=== PATIENT | female | born 2000 | race African-American/Black ===

== ENCOUNTER → 2023-07-12 | Emergency (ER) | payer BC ==
[2023-07-12 14:27] LABS: Absolute Lymphocytes (CBC) 1.9 K/uL (0.7-4.9); Hematocrit 37.5 % (36.0-45.0); Lymphocytes % 39.2 % (15.3-44.8); MCV 81.9 fL (80-100); MPV 6.8 fL (7.6-11.3); Platelets 357 thou/uL (152-406); RBC Red Blood Cell Count 4.58 M/uL (3.86-4.86)
[2023-07-12 14:28] LABS: Specific Gravity 1.013 (1.005-1.030)
[2023-07-12 14:32] LABS: Specific Gravity 1.013 (1.005-1.030); Urine Bacteria None Seen /HPF (<20); Urine Bilirubin NEGATIVE (Negative); Urine Blood 3+ (OVER) (Negative); Urine Clarity Extremely Turbid (Clear); Urine Color Colorless (Yellow); Urine Glucose NEGATIVE (Negative); Urine Mucus Slight /HPF (None Seen); Urine Protein NEGATIVE (Negative); Urine RBC >50 /HPF (None Seen); Urine Urobilinogen Normal (Normal); Urine pH 6.5 (5.0-7.0)
--- NOTE | 2023-07-12 14:34 | RAD REPORT ---
EXAM DESCRIPTION: US - Transvaginal OB - 07/12/2023 2:01 pm CLINICAL HISTORY: VAGINAL BLEEDING COMPARISON: No comparisons TECHNIQUE: Sonographic grayscale and color flow images of a first-trimester were obtained through transvaginal and transabdominal approach. FINDINGS: A small intrauterine possible early gestational sac was visualized, with mean diameter 5.1 mm is identified, however no pole or cardiac pulsations are identified. This correlates to ges tational age of 5 weeks and 2 days. A large heterogeneous mass with with large hyperechoic components as well as fluid components and sep tations is seen interposed between the bladder and left adnexal region as best evaluated on the trans abdominal images, incompletely imaged, however the major component is measured at 7.3 x 6.7 x 6.5 cm in greatest dimensions. Origin of the mass is not discretely identified. Maternal ovaries were not visualized. No free pelvic fluid. IMPRESSION: 1. Small presumed early gestational sac within the upper uterine segment, would correlat e to gestational age 5 weeks and 2 days by size. Please correlate with beta HCG levels, and consider short-term sonographic follow-up to ensure viability. 2. Large heterogeneous pelvic mass as above, not entirely imaged. This is favored to be of ovarian or igin, possibly a complex cyst, cystic neoplasm, cystic lesion related to endometriosis, or a teratoma , among other considerations. If additional imaging is to be pursued during , and noncontras t pelvis MRI would provide improved sensitivity.
[2023-07-12 15:00] LABS: Potassium 3.4 mEq/L (3.5-5.1)
--- NOTE | 2023-07-12 15:41 | ER ---
Nurse's Notes [facility] Name: Jennifer Paredes Age: 22 yrs Sex: Female : 2000 Arrival Date: 07/12/2023 Time: 12:24 Bed 17 Private MD: Diagnosis: Threatened ;Other intra-abdominal and pelvic swelling, mass and lump Presentation: 07/12 12:35 Chief complaint: Patient states: Approximately 6 weeks . Started vaginal ll1 bleeding last night. Bleeding "like a period" but with clots in it. G1, P0. Coronavirus screen: Client denies travel out of the [place] in the last 14 days. At this time, the client does not indicate any symptoms associated with coronavirus-19. Ebola Screen: Patient denies travel to an Ebola-affected area in the 21 days before illness onset. Initial Sepsis Screen: Does the patient meet any 2 criteria? No. Patient's initial sepsis screen is negative. Does the patient have a suspected source of infection? No. Patient's initial sepsis screen is negative. Risk Assessment: Do you want to hurt yourself or someone else? Patient reports no desire to harm self or others. Onset of symptoms was July 11, 2023. 12:35 Method Of Arrival: Ambulatory ll1 12:35 Acuity: BEN 3 ll1 Triage Assessment: 12:38 General: Appears in no apparent distress. Behavior is calm, cooperative, appropriate ll1 for age. Pain: Denies pain. : Reports vaginal bleeding that is with clots, moderate flow. Historical: - Allergies: 12:45 Tree Nuts; ll1 - PMHx: 12:45 Asthma; ll1 - PSHx: 12:45 None; ll1 - Immunization history:: Adult Immunizations up to date. - Social history:: Smoking status: Patient denies any tobacco usage or history of. - Family history:: not pertinent. - Hospitalizations: : No recent hospitalization is reported. Screenin:54 [facility] ED Fall Risk Assessment (Adult) History of falling in the last 3 months, cm10 including since admission No falls in past 3 months (0 pts) Confusion or Disorientation No (0 pts) Intoxicated or Sedated No (0 pts) Impaired Gait No (0 pts) Mobility Assist Device Used No (0 pt) Altered Elimination No (0 pt) Score/Fall Risk Level 0 - 2 = Low Risk Oriented to surroundings, Maintained a safe environment, Hourly rounding (assess needs \\T\\ fall precautionary measures) done. Abuse screen: Denies threats or abuse. Denies injuries from another. Nutritional screening: No deficits noted. Tuberculosis screening: No symptoms or risk factors identified. Assessment: 14:21 Reassessment: No changes from previously documented assessment. Patient and/or family ll1 updated on plan of care and expected duration. Pain level reassessed. Patient is alert, oriented x 3, equal unlabored respirations, skin warm/dry/pink. 15:56 Reassessment: Patient appears in no apparent distress at this time. No changes from cm10 previously documented assessment. Patient and/or family updated on plan of care and expected duration. Pain level reassessed. Patient is alert, oriented x 3, equal unlabored respirations, skin warm/dry/pink. Vital Signs: 12:45 BP 158 / 99; Pulse 85; Resp 17; Temp 98.3; Pulse Ox 100% ; Weight 111.13 kg; Height 5 ll1 ft. 6 in. ; Pain 0/10; 15:54 BP 155 / 95; Pulse 87; Resp 16; Pulse Ox 100% on R/A; cm10 12:45 Body Mass Index 39.54 (111.13 kg, 167.64 cm) ll1 12:45 Pain Scale: Adult ll1 ED Course: 12:31 Patient arrived in ED. mg5 12:33 Bayron Lentz MD is Attending Physician. rn 12:37 Triage completed. ll1 13:30 Arm band placed on Patient placed in an exam room, on a stretcher. ll1 13:54 Missed attempt(s): 20 gauge in left antecubital area. 22 gauge in right antecubital ds4 area. Bleeding controlled, band aid applied, catheter tip intact. 14:03 US Transvaginal Ob In Process Unspecified. EDMS 14:18 Inserted saline lock: 22 gauge in right antecubital area, using aseptic technique. cm10 Blood collected. 14:21 Test, Urine Sent. ll1 14:21 Urinalysis w/ reflexes Sent. ll1 14:21 CBC with Diff Sent. ll1 14:21 Basic Metabolic Panel Sent. ll1 14:21 Abo/rh Typing Sent. ll1 15:55 Patient has correct armband on for positive identification. Provided Education on: cm10 Follow-up instructions. . 15:56 No provider procedures requiring assistance completed. IV discontinued, intact, cm10 bleeding controlled, No redness/swelling at site. Pressure dressing applied. Administered Medications: No medications were administered Medication: 15:54 VIS not applicable for this client. cm10 Outcome: 15:41 Discharge ordered by . rn 15:55 Discharged to home ambulatory, with significant other, cm10 15:55 Condition: good 15:55 Discharge instructions given to patient, Instructed on discharge instructions, follow up and referral plans. Demonstrated understanding of instructions, follow-up care, 15:57 Patient left the ED. cm10 Signatures: Dispatcher [employer] EDMS Bayron Lentz MD MD rn Swanson, Donovan ds4 Julian England RN RN ll1 Toya Boland RN RN cm10 Nicolette Resendiz mg5 Corrections: (The following items were deleted from the chart) 12:47 12:38 : Reports vaginal bleeding that is ll1 ll1 12:50 12:35 Chief complaint: Patient states: Approximately 6 weeks . Started vaginal ll1 bleeding last night. Bleeding "like a period" but with clots in it. ll1 13:30 12:33 Arm band placed on Patient placed in an exam room, on a stretcher, ll1 ll1
--- NOTE | 2023-07-12 15:41 | EDPHYS ---
Physician Documentation [facility] Name: Jennifer Paredes Age: 22 yrs Sex: Female : 2000 Arrival Date: 07/12/2023 Time: 12:24 Bed 17 Private MD: ED Physician Bayron Lentz HPI: 07/12 13:29 This 22 yrs old Black Female presents to ER via Ambulatory with complaints of Preg rn 6wks, Vaginal Bleeding. 13:29 The patient presents with vaginal bleeding that is moderate. Onset: The rn symptoms/episode began/occurred this morning. Modifying factors: The symptoms are alleviated by nothing, the symptoms are aggravated by nothing. Severity of symptoms: At their worst the symptoms were mild, in the emergency department the symptoms are unchanged. The patient has not experienced similar symptoms in the past. Patient is G1, P0 at approximately 5 to 6 weeks and her who presents with vaginal bleeding. Also has mild lower abdominal cramping. No trauma. Was had an ultrasound place and directed to come to ER or see her OB doctor.. Historical: - Allergies: 12:45 Tree Nuts; ll1 - PMHx: 12:45 Asthma; ll1 - PSHx: 12:45 None; ll1 - Immunization history:: Adult Immunizations up to date. - Social history:: Smoking status: Patient denies any tobacco usage or history of. - Family history:: not pertinent. - Hospitalizations: : No recent hospitalization is reported. ROS: 13:29 Constitutional: Negative for fever, chills, and weight loss, Cardiovascular: Negative rn for chest pain, palpitations, and edema, Respiratory: Negative for shortness of breath, cough, wheezing, and pleuritic chest pain, Abdomen/GI: Positive for abdominal cramping : Positive for vaginal bleeding Exam: 13:29 Constitutional: This is a well developed, well nourished patient who is awake, alert, rn and in no acute distress. Cardiovascular: Regular rate and rhythm. No pulse deficits. Respiratory: No increased work of breathing, no retractions or nasal flaring. Abdomen/GI: Soft, nontender Vital Signs: 12:45 BP 158 / 99; Pulse 85; Resp 17; Temp 98.3; Pulse Ox 100% ; Weight 111.13 kg; Height 5 ll1 ft. 6 in. ; Pain 0/10; 15:54 BP 155 / 95; Pulse 87; Resp 16; Pulse Ox 100% on R/A; cm10 12:45 Body Mass Index 39.54 (111.13 kg, 167.64 cm) ll1 12:45 Pain Scale: Adult ll1 MDM: 12:33 Patient medically screened. rn 15:40 Differential diagnosis: ectopic , Data reviewed: vital signs, nurses notes, e learning specialist test result(s), radiologic studies, ultrasound, and as a result, I will discharge patient. Counseling: I had a detailed discussion with the patient and/or guardian regarding the historical points, exam findings, and any diagnostic results supporting the discharge/admit diagnosis, lab results, radiology results, the need for outpatient follow up, to return to the emergency department if symptoms worsen or persist or if there are any questions or concerns that arise at home. Special discussion: I discussed with the patient/guardian in detail that at this point there is no indication for admission to the hospital. It is understood, however, that if the symptoms persist or worsen the patient needs to return immediately for re-evaluation. Based on the history and exam findings, there is no indication for further emergent testing or inpatient evaluation. I discussed with the patient/guardian the need to see the OB Gyne specialist for further evaluation of the symptoms. ED course: Ultrasound shows single IUP, but also has found large pelvic mass. Patient states history of ovarian cysts but has not seen quilt maker for this specific problem. Had long conversation with patient and significant other and her need for gynecologic evaluation and referral. Will return in 2 days for repeat beta quant since she does not have an OB doctor at this time.. 07/12 12:39 Order name: Abo/rh Typing; Complete Time: 15:03 rn 07/12 12:39 Order name: Basic Metabolic Panel; Complete Time: 15:03 rn 07/12 12:39 Order name: CBC with Diff; Complete Time: 14:39 rn 07/12 12:39 Order name: Test, Urine; Complete Time: 14:39 rn 07/12 12:39 Order name: Quantitative Hcg; Complete Time: 15:03 rn 07/12 12:39 Order name: Urinalysis w/ reflexes; Complete Time: 14:39 rn 07/12 12:39 Order name: US Transvaginal Ob; Complete Time: 14:39 rn 07/12 12:39 Order name: IV Saline Lock; Complete Time: 14:18 rn 07/12 12:39 Order name: Labs collected and sent; Complete Time: 14:18 rn 07/12 12:39 Order name: NPO; Complete Time: 14:12 rn Administered Medications: No medications were administered Disposition Summary: 07/12/23 15:41 Discharge Ordered Notes: Location: Home rn Problem: new rn Symptoms: are unchanged rn Condition: Stable rn Diagnosis - Threatened rn - Other intra-abdominal and pelvic swelling, mass and lump rn Followup: rn - With: Emergency Department - When: 48 Hours - Reason: Recheck today's complaints, Re-evaluation by your physician Discharge Instructions: - Discharge Summary Sheet rn - Threatened Miscarriage rn - Vaginal Bleeding During , First Trimester rn - Pelvic Mass, Female rn Forms: - Medication Reconciliation Form rn - Thank You Letter rn - Antibiotic internal communications manager - Prescription Opioid Use rn - Patient Portal Instructions rn - Leadership Thank You Letter rn Signatures: Dispatcher [employer] Bayron Curran MD MD rn Lewis, Lynsay, RN RN 1
[2023-07-12 17:35] VITALS: BP 155/95; TEMP 98.3; O2SAT 100
== END ==
LOC: ER 12:24
DX: O20.0 Threatened abortion (principal); Z91.018 Allergy to other foods
CPT/HCPCS: 36415; 76817; 80048; 81001; 81025; 84702; 85025; 86900; 86901

== ENCOUNTER → 2023-07-14 | Emergency (ER) | payer BC ==
--- NOTE | 2023-07-14 14:01 | EDPHYS ---
Physician Documentation [facility] Name: Jennifer Paredes Age: 22 yrs Sex: Female : 2000 Arrival Date: 07/14/2023 Time: 11:51 Bed 11 Private MD: ED Physician Domenic Jackson HPI: 07/14 13:55 This 22 yrs old Black Female presents to ER via Ambulatory with complaints of Recheck sp3 HCG levels. 13:55 22-year-old female G1, P0 who was seen 2 days ago for vaginal bleeding returns to the sp3 ED for reevaluation of beta hCG serum levels. 2 days ago level was 1400 and ultrasound demonstrated 2 findings. The first was IUP at 6 weeks and secondarily the left ovarian mass which was either a complex cyst versus teratoma versus malignancy. Patient today states that she continues to have vaginal bleeding does not have any pain. No other symptoms or changes reported. Patient has an appointment for follow-up with gynecology on July 24.. 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 - Social history:: Smoking status: Patient denies any tobacco usage or history of. ROS: 13:58 Constitutional: Negative for fever, chills, and weight loss, Eyes: Negative for injury, sp3 pain, redness, and discharge, ENT: Negative for injury, pain, and discharge, Neck: Negative for injury, pain, and swelling, Cardiovascular: Negative for chest pain, palpitations, and edema, Respiratory: Negative for shortness of breath, cough, wheezing, and pleuritic chest pain, Abdomen/GI: Negative for abdominal pain, nausea, vomiting, diarrhea, and constipation, Back: Negative for injury and pain, MS/Extremity: Negative for injury and deformity, Psych: Negative for depression, anxiety, suicide ideation, homicidal ideation, and hallucinations, Allergy/Immunology: Negative for hives, rash, and allergies, 13:58 All other systems are negative, Exam: 13:59 Constitutional: This is a well developed, well nourished patient who is awake, alert, sp3 and in no acute distress. Head/Face: Normocephalic, atraumatic. Cardiovascular: Regular rate and rhythm with a normal S1 and S2. No gallops, murmurs, or rubs. Normal PMI, no JVD. No pulse deficits. Respiratory: Lungs have equal breath sounds bilaterally, clear to auscultation and percussion. No rales, rhonchi or wheezes noted. No increased work of breathing, no retractions or nasal flaring. Abdomen/GI: Soft, non-tender, with normal bowel sounds. No distension or tympany. No guarding or rebound. No evidence of tenderness throughout. Neuro: Awake and alert, GCS 15, oriented to person, place, time, and situation. Cranial nerves II-XII grossly intact. Motor strength 5/5 in all extremities. Sensory grossly intact. Cerebellar exam normal. Normal gait. Psych: Awake, alert, with orientation to person, place and time. Behavior, mood, and affect are within normal limits. Vital Signs: 12:17 BP 148 / 91; Pulse 108; Resp 18 S; Temp 98.8(O); Pulse Ox 96% on R/A; aa5 MDM: 12:20 Patient medically screened. sp3 13:59 Data reviewed: vital signs, nurses notes, lab test result(s). ED course: 22-year-old sp3 female here for repeat hCG serum at 48 hours. Repeat level is at 1900 which is less than the doubling amount that we would expect. Patient is still having vaginal bleeding that is painless. At this point we will advise her that she likely has an impending miscarriage and she will follow-up with her field insurance sales manager on July 24. She will also need to be reevaluated for her ovarian mass. She has been instructed to return if bleeding gets significantly worse, she has significant pain, near syncope, syncope, weakness, or any other concerning findings. Otherwise she can follow-up with her field insurance sales manager. Heart rate initially was 108 but it is in the upper 80s on my exam and on discharge.. 07/14 12:25 Order name: Quantitative Hcg; Complete Time: 13:40 sp3 Administered Medications: No medications were administered Disposition Summary: 07/14/23 14:00 Discharge Ordered Notes: Location: Home sp3 Condition: Stable sp3 Diagnosis - Threatened , vaginal bleeding sp3 Followup: sp3 - With: Private Physician - When: Upon discharge from the Emergency Department - Reason: Continuance of care Discharge Instructions: - Discharge Summary Sheet sp3 - Threatened Miscarriage sp3 Forms: - Medication Reconciliation Form sp3 - Thank You Letter sp3 - Antibiotic Education sp3 - Prescription Opioid Use sp3 - Patient Portal Instructions sp3 - Leadership Thank You Letter sp3 Signatures: Dispatcher [employer] Christianne Moss, RN RN aa5 Domenic Jackson MD MD sp3
--- NOTE | 2023-07-14 14:01 | ER ---
Nurse's Notes [facility] Name: Jennifer Paredes Age: 22 yrs Sex: Female : 2000 Arrival Date: 07/14/2023 Time: 11:51 Bed 11 Private MD: Diagnosis: Threatened , vaginal bleeding Presentation: 07/14 12:17 Chief complaint: Patient states: need for repeat HCG level, was seen here 2 days ago. aa5 Coronavirus screen: At this time, the client does not indicate any symptoms associated with coronavirus-19. Ebola Screen: Patient denies travel to an Ebola-affected area in the 21 days before illness onset. Initial Sepsis Screen: Does the patient meet any 2 criteria? No. Patient's initial sepsis screen is negative. Does the patient have a suspected source of infection? No. Patient's initial sepsis screen is negative. Risk Assessment: Do you want to hurt yourself or someone else? Patient reports no desire to harm self or others. Onset of symptoms was July 14, 2023. 12:17 Method Of Arrival: Ambulatory aa5 12:17 Acuity: BEN 4 aa5 Triage Assessment: 14:09 General: Appears in no apparent distress. Pain: Denies pain. Neuro: Level of ap3 Consciousness is awake, alert, obeys commands, Oriented to person, place, time, situation, Appropriate for age. 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 - Social history:: Smoking status: Patient denies any tobacco usage or history of. Screenin:55 [facility] ED Fall Risk Assessment (Adult) Score/Fall Risk Level 0 - 2 = Low Risk hb Oriented to surroundings, Maintained a safe environment, Educated pt \T\ family on fall prevention, incl call for assistance when getting out of bed. Abuse screen: Denies threats or abuse. Denies injuries from another. Nutritional screening: No deficits noted. Tuberculosis screening: No symptoms or risk factors identified. Assessment: 13:55 General: Appears in no apparent distress. Behavior is calm, cooperative. Neuro: Level hb of Consciousness is awake, alert, obeys commands, GCS 15. Cardiovascular: Patient's skin is warm and dry. Respiratory: Respiratory effort is even, unlabored, Respiratory pattern is regular, symmetrical. Vital Signs: 12:17 BP 148 / 91; Pulse 108; Resp 18 S; Temp 98.8(O); Pulse Ox 96% on R/A; aa5 ED Course: 11:54 Patient arrived in ED. mr 11:58 Domenic Jackson MD is Attending Physician. sp3 12:18 Triage completed. aa5 12:18 Arm band placed on. aa5 12:52 Initial lab(s) drawn, by me, sent to lab. aa5 13:55 Patient has correct armband on for positive identification. Provided Education on: . hb 13:55 No provider procedures requiring assistance completed. Patient did not have IV access hb during this emergency room visit. Administered Medications: No medications were administered Medication: 13:55 VIS not applicable for this client. hb Outcome: 14:00 Discharge ordered by . sp3 14:09 Discharged to home ambulatory, with family, ap3 14:09 Condition: good 14:09 Discharge instructions given to patient, Instructed on discharge instructions, follow up and referral plans. Demonstrated understanding of instructions, follow-up care, 14:09 Patient left the ED. ap3 Signatures: Ann Marie Giang, Reg Reg mr SearsChristianne, RN RN aa5 Yara Bowling, DELMA RN Nancy Ruiz RN RN ap3 Domenic Jackson MD MD sp3
[2023-07-14 17:36] VITALS: BP 148/91; TEMP 98.8; O2SAT 96
== END ==
LOC: ER 11:51
DX: O20.0 Threatened abortion (principal); Z91.018 Allergy to other foods
CPT/HCPCS: 36415; 84702; 99283

== ENCOUNTER 2024-09-16 22:08 | Emergency (ER) | payer BC, SELFPAY ==
--- OUTSIDE RECORDS SUMMARY | 2024-09-16 22:13 | XMS REPORT | Continuity of Care Document ---
Author Name Unknown Address [address] [facility] [address] [place] [address] [facility] Address [address] [facility] 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 2023-07 00:00: 00 [facility] von Willebrand disorder Von Willebrand Disorder Problem Active 2023-07 00:00: 00 [facility] Cyst of right ovary Cyst of Right Ovary Problem Active 2023-07 00:00: 00 [facility] Polycystic ovary syndrome Polycystic Ovary Syndrome Problem Active 2023-07 00:00: 00 [facility] Pain in pelvis Pain in Pelvis Problem Active 2023-07 00:00: 00 [facility] Menorrhagi a Menorrhagi a Problem Active 2023-07 00:00: 00 [facility] Abnormal uterine bleeding Abnormal Uterine Bleeding Problem Active 2023-07 00:00: 00 [facility] Allergies, Adverse Reactions, Alerts Allergy Name Allergy Type Status Severity Reaction(s) Onset Date Inactive Date Treating Clinician Comments Source walnut FA Active SV SHORTNESS OF BREATHE 2023-07 00:00: 00 [facility] cashew nut FA Active SV SHORTNESS OF BREATHE 2023-07 00:00: 00 [facility] peanut FA Active SV SHORTNESS OF BREATH 2023-07 00:00: 00 [facility] Medications Ordered Medication Name Filled Medication Name Start Date Stop Date Current Medication? Ordering Clinician Indication Dosage Frequency Signature (SIG) Comments Components Source azelastine 137 mcg (0.1 %) nasal spray USE 1 SPRAY(S) IN EACH NOSTRIL ONCE DAILY azelastine 137 mcg (0.1 %) nasal spray USE 1 SPRAY(S) IN EACH NOSTRIL ONCE DAILY No azelastine 137 mcg (0.1 %) nasal spray USE 1 SPRAY(S) IN EACH NOSTRIL ONCE DAILY [facility] hydrocodone 5 mg-acetamin ophen 325 mg tablet hydrocodone 5 mg-acetamin ophen 325 mg tablet No hydrocodon e 5 mg-acetami nophen 325 mg tablet [facility] ibuprofen 600 mg tablet ibuprofen 600 mg tablet No ibuprofen 600 mg tablet [facility] Vital Signs Vital Name Observation Time Observation Value Comments S ource BP Systolic 2024-06-20 00:00:00 128 mm[Hg] [facility] Body Weight 2024-06-20 00:00:00 262 [lb_av] [facility] BP Diastolic 2024-06-20 00:00:00 86 mm[Hg] [facility] BMI (Body Mass Index) 2024-06-20 00:00:00 43.6 kg/m2 [facility] Height 2024-06-20 00:00:00 65 [in_i] [facility] Height 2024-06-04 00:00:00 65 [in_i] [facility] Body Weight 2024-05-27 00:00:00 260 [lb_av] [facility] BP Systolic 2024-05-27 00:00:00 132 mm[Hg] [facility] Height 2024-05-27 00:00:00 65 [in_i] [facility] BMI (Body Mass Index) 2024-05-27 00:00:00 43.3 kg/m2 [facility] BP Diastolic 2024-05-27 00:00:00 82 mm[Hg] [facility] Body Weight 2024-05-13 00:00:00 260 [lb_av] [facility] Height 2024-05-13 00:00:00 65 [in_i] [facility] BP Systolic 2024-05-13 00:00:00 118 mm[Hg] [facility] BMI (Body Mass Index) 2024-05-13 00:00:00 43.3 kg/m2 [facility] BP Diastolic 2024-05-13 00:00:00 76 mm[Hg] [facility] Encounters Start Date/Time End Date/Time Encounter Type Admission Type Attending [facility] Care Facility Care Department Encounter ID Source 2024-06-20 00:00:00 2024-06-20 00:00:00 Rj Madrid MD: [address] [facility] [address], [place] [address] , Ph. [facility] _[facility] 200 Office [id number] [facility] 2024-06-10 05:45:00 2024-06-10 05:45:00 Outpatient Rj Grove [facility] DAYS [id number] [facility] 2024-06-04 00:00:00 2024-06-04 00:00:00 Rj Madrid MD: [address] [facility] [address], [place] [address] , Ph. [facility] _[facility] 200 Office [id number] [facility] 2024-05-27 00:00:00 2024-05-27 00:00:00 Rj Madrid MD: [address] [facility] [address], [place] [address] , Ph. [facility] _[facility] 200 Office [id number] [facility] 2024-05-13 00:00:00 2024-05-13 00:00:00 Rj Madrid MD: [address] [facility] [address], [place] [address] , Ph. [facility] 200 Office [id number] [facility] 2022-06-23 15:39:00 2022-06-23 18:46:00 Emergency E AD[place] [address] [facility] Results Test Description Test Time Test Comments Results Result Co mments Source Surgical pathology [id number] 14:22:[facility] [id number] 14:34:00* Test Item Value Reference Range Interpretation Comme nts SODIUM (test code = NA) 137 mmol/L 136-145 N POTASSIUM (test code = K) 3.9 mmol/L 3.5-5.1 N CHLORIDE (test code = CL) 104.0 mmol/L 98-107 N CARBON DIOXIDE (test code = CO2) 22.0 mmol/L 21-32 N ANION GAP (test code = GAP) 14.9 mmol/L 10-20 N GLUCOSE (test code = GLU) 83 mg/dL 74-106 N BLOOD UREA NITROGEN (test code = BUN) 8 mg/dL 7-18 N GLOMERULAR FILTRATION RATE (test code = GFR) > 60 mL/min >=60 The Glomerular Filtration Rate is a calculated parameterbased on serum Creatinine, patient age and sex. GFR valuesless than 60 mL/min/1.73 square meters are indicative ofChronic Kidney Disease. Values less than 15 mL/min/1.73square meters indicate Kidney failure. The calculation forGFR is based on the CKD-EPI (2020) calculation. This formulais race indifferent and is the recommended formula for GFRby the National Kidney Foundation for Adults.The GFR will not calculate if the sex is unknown or if thepatient's age is <18 years. CREATININE (test code = CREAT) 0.70 mg/dL 0.55-1.02 N Note change in reference range due to change in reagent. BUN/CREATININE RATIO (test code = BUN/CREA) 11.3 10-20 N TOTAL PROTEIN (test code = PROT) 7.6 gram/dL 6.4-8.2 N ALBUMIN (test code = ALB) 3.8 g/dL 3.4-5.0 N GLOBULIN (test code = GLOB) 3.8 gram/dL 2.7-4.2 N ALBUMIN/GLOBULIN RATIO (test code = A/G) 1.0 0.75-1.50 N CALCIUM (test code = CA) 9.1 mg/dL 8.5-10.1 N BILIRUBIN TOTAL (test code = BILT) 0.50 mg/dL 0.0-1.0 N SGOT/AST (test code = AST) 21 IUnit/L 15-37 N SGPT/ALT (test code = ALT) 23 IUnit/L 12-78 N ALKALINE PHOSPHATASE TOTAL (test code = ALKP) 61 IUnit/L 45-117 N Note change in reference range due to change in reagent. PROTHROMBIN [id number] 14:32:00* Test Item Value Reference Range Interpretation Comme nts PROTHROMBIN TIME PATIENT (test code = PTP) 11.1 seconds 10.0-14.0 N INTERNATIONAL NORMAL RATIO (test code = INR) 1.1 0.8-1.2 N The therapeutic range for oral anticoagulant therapy formost indications is an international normalized ratio (INR)of between 2.0 and 3.0. The recommended therapeutic INRrange for various clinical situations is listed below: Clinical Situation INR range Pulmonary embolism treatment (2.0-3.0)Venous thrombosis treatmentVenous thrombosis prophylaxis (high risk surgery)Prevention of systemic embolism from: Acute myocardial infarction Valvular heart disease Atrial fibrillation Mechanical prosthetic heart valves (2.5-3.5) IS PATIENT ON ANTICOAGULANTS? NTHROMBOPLASTIN TIME [id number] 14:32:00* Test Item Value Reference Range Interpretation Comme nts THROMBOPLASTIN TIME PARTIAL (test code = PTT) 30.4 seconds 26.6-37.3 N IS PATIENT ON ANTICOAGULANTS? [facility] [id number] 14:28:00* Test Item Value Reference Range Interpretation Comme nts HCG SERUM QUAL (test code = HCGQL) NEGATIVE NEGATIVE This HCGQL test is NOT applicable for MALE patients.Check with nurse about probable order error.If Tumor Marker Test needed, nurse should order test "HCGTU"(Test #[id number]) CBC W/AUTO [id number] 14:20:00* Test Item Value Reference Range Interpretation Comme nts WHITE BLOOD CELL (test code = WBC) 7.6 K/mm3 4.5-12.5 N RED BLOOD CELL (test code = RBC) 4.47 mill/mm3 3.7-5.2 N HEMOGLOBIN (test code = HGB) 11.6 gram/dL 11.5-15.5 N HEMATOCRIT (test code = HCT) 37.0 % 36.0-46.0 N MEAN CELL VOLUME (test code = MCV) 82.8 fL 80-98 N MEAN CELL HGB (test code = MCH) 26.0 picogram 27.0-33.0 L MEAN CELL HGB CONCETRATION (test code = MCHC) 31.4 gram/dL 33.0-36.0 L RED CELL DISTRIBUTION WIDTH (test code = RDW) 13.5 % 11.6-16.2 N RED CELL DISTRIBUTION WIDTH SD (test code = RDW-SD) 41.1 fL 37.0-51.0 N PLATELET COUNT (test code = PLT) 438 K/mm3 150-450 N MEAN PLATELET VOLUME (test c ode = MPV) 8.9 fL 6.7-11.0 N NEUTROPHIL % (test code = NT%) 59.0 % 39.0-69.0 N IMMATURE GRANULOCYTE % (test code = IG%) 0.1 % 0.0-5.0 N LYMPHOCYTE % (test code = LY%) 33.8 % 25.0-55.0 N MONOCYTE % (test code = MO%) 4.3 % 0.0-10.0 N EOSINOPHIL % (test code = EO%) 2.5 % 0.0-5.0 N BASOPHIL % (test code = BA%) 0.3 % 0.0-1.0 N NUCLEATED RBC % (test code = NRBC%) 0.0 % 0-0 N NEUTROPHIL # (test code = NT#) 4.50 K/mm3 1.8-7.7 N IMMATURE GRANULOCYTE # (test code = IG#) 0.01 x10 3/uL 0-0.03 N LYMPHOCYTE # (test code = LY#) 2.58 K/mm3 1.0-5.0 N MONOCYTE # (test code = MO#) 0.33 K/mm3 0-0.8 N EOSINOPHIL # (test code = EO#) 0.19 K/mm3 0.0-0.5 N BASOPHIL # (test code = BA#) 0.02 K/mm3 0.0-0.2 N NUCLEATED RBC # (test code = NRBC#) 0.00 K/mm3 0.0-0.1 N Prothrombin time (PT)2024-06-04 13:45:00* Test Item Value Reference Range Interpretation Comme [facility] prothrombin time patient (te st code = prothrombin time patient) 11.1 seconds 10.0-14.0 international normal ratio ( test code = international normal ratio) 1.1 0.8-1.2 performing lab: (test code = performing lab:) [facility] [id number] 13:45:00* Test Item Value Reference Range Interpretation Comme [facility] thromboplastin time partial (test code = thromboplastin time partial) 30.4 seconds 26.6-37.3 performing lab: (test code = performing lab:) [facility] or [id number] 13:45:00* Test Item Value Reference Range Interpretation Comme nts sodium (test code = sodium) 137 mmol/L 136-145 potassium (test code = potassium) 3.9 mmol/L 3.5-5.1 chloride (test code = chloride) 104.0 mmol/L 98-107 carbon dioxide (test code = carbon dioxide) 22.0 mmol/L 21-32 anion gap (test code = anion gap) 14.9 mmol/L 10-20 glucose (test code = glucose) 83 mg/dL 74-106 blood urea nitrogen (test co de = blood urea nitrogen) 8 mg/dL 7-18 glomerular filtration rate ( test code = glomerular filtration rate) > 60 >=60 creatinine (test code = creatinine) 0.70 mg/dL 0.55-1.02 BUN/creatinine ratio (test c ode = BUN/creatinine ratio) 11.3 10-20 total protein (test code = t otal protein) 7.6 gram/dL 6.4-8.2 albumin (test code = albumin) 3.8 g/dL 3.4-5.0 globulin (test code = globulin) 3.8 gram/dL 2.7-4.2 albumin/globulin ratio (test code = albumin/globulin ratio) 1.0 0.75-1.50 calcium (test code = calcium) 9.1 mg/dL 8.5-10.1 bilirubin total (test code = bilirubin total) 0.50 mg/dL 0.0-1.0 SGOT/AST (test code = SGOT/AST) 21 iunit/L 15-37 SGPT/ALT (test code = SGPT/ALT) 23 iunit/L 12-78 alkaline phosphatase total ( test code = alkaline phosphatase total) 61 iunit/L 45-117 performing lab: (test code = performing lab:) [facility] ( test) [Presence] in Serum or [id number] 13:44:00* Test Item Value Reference Range Interpretation Comme nts HCG serum qual (test code = HCG serum qual) NEGATIVE negative performing lab: (test code = performing lab:) [facility] W Auto Differential panel - [id number] 13:44:00* Test Item Value Reference Range Interpretation Comme nts white blood cell (test code = white blood cell) 7.6 K/mm3 4.5-12.5 red blood cell (test code = red blood cell) 4.47 mill/mm3 3.7-5.2 hemoglobin (test code = hemoglobin) 11.6 gram/dL 11.5-15.5 hematocrit (test code = hematocrit) 37.0 % 36.0-46.0 mean cell volume (test code = mean cell volume) 82.8 fL 80-98 mean cell HGB (test code = m joni cell HGB) 26.0 picogram 27.0-33.0 L mean cell HGB concetration (test code = mean cell HGB concetration) 31.4 gram/dL 33.0-36.0 L red cell distribution width (test code = red cell distribution width) 13.5 % 11.6-16.2 red cell distribution width SD (test code = red cell distribution width SD) 41.1 fL 37.0-51.0 platelet count (test code = platelet count) 438 K/mm3 150-450 mean platelet volume (test c ode = mean platelet volume) 8.9 fL 6.7-11.0 neutrophil % (test code = neutrophil %) 59.0 % 39.0-69.0 immature granulocyte % (test code = immature granulocyte %) 0.1 % 0.0-5.0 lymphocyte % (test code = lymphocyte %) 33.8 % 25.0-55.0 monocyte % (test code = monocyte %) 4.3 % 0.0-10.0 eosinophil % (test code = eosinophil %) 2.5 % 0.0-5.0 basophil % (test code = basophil %) 0.3 % 0.0-1.0 nucleated RBC % (test code = nucleated RBC %) 0.0 % 0-0 neutrophil # (test code = neutrophil #) 4.50 K/mm3 1.8-7.7 immature granulocyte # (test code = immature granulocyte #) 0.01 x10 3/uL 0-0.03 lymphocyte # (test code = lymphocyte #) 2.58 K/mm3 1.0-5.0 monocyte # (test code = monocyte #) 0.33 K/mm3 0-0.8 eosinophil # (test code = eosinophil #) 0.19 K/mm3 0.0-0.5 basophil # (test code = basophil #) 0.02 K/mm3 0.0-0.2 nucleated RBC # (test code = nucleated RBC #) 0.00 K/mm3 0.0-0.1 performing lab: (test code = performing lab:) [facility]Mass/volume] in Serum or [id number] 00:00:00* Test Item Value Reference Range Interpretation Comme nts androstenedione lcms (test c ode = androstenedione lcms) 82 NG/dL 41-262 [facility]ucose tolerance and insulin sensitivity 2 hour panel - Serum or [id number] 00:00:00* Test Item Value Reference Range Interpretation Comme nts glucose, fasting (test code = glucose, fasting) 76 mg/dL 70-99 glucose, 2 hour (test code = glucose, 2 hour) 90 mg/dL 70-139 [facility] [id number] [Mass/volume] in Serum or [id number] 00:00:00* Test Item Value Reference Range Interpretation Comme nts 17-oh progesterone lcms (romaine t code = 17-oh progesterone lcms) 27 NG/dL [facility]orrh[facility] coagulation panel - Platelet poor [id number] 00:00:00* Test Item Value Reference Range Interpretation Comme nts factor VIII activity (test c ode = factor VIII activity) 88 % 56-140 von willebrand factor (vwf) Ag (test code = von willebrand factor (vwf) Ag) 71 % 50-200 vwf activity (test code = vw f activity) 36 % 50-200 L factor XI activity (test cod e = factor XI activity) 108 % 60-150 APTT (test code = APTT) 28.3 sec 22.9-30.2 PT (test code = PT) 10.3 sec 9.1-12.0 [facility] MedicalInsulin [Units/volume] in Serum or [id number] 00:00:00* Test Item Value Reference Range Interpretation Comme nts insulin (test code = insulin) 19.0 uIU/mL 2.6-24.9 [facility] [Mass/volume] in Serum or [id number] 00:00:00* Test Item Value Reference Range Interpretation Comme nts prolactin (test code = prolactin) 17.1 NG/mL 4.8-23.3 [facility] MedicalFree T4 and TSH panel - Serum or [id number] 00:00:00* Test Item Value Reference Range Interpretation Comme nts TSH (test code = TSH) 2.600 uIU/mL 0.500-4.530 free T4 (test code = free T4) 1.13 NG/dL 0.80-1.73 [facility] 2000 [facility] - Serum or [id number] 00:00:00* Test Item Value Reference Range Interpretation Comme nts sodium (test code = sodium) 139 mmol/L 136-145 potassium (test code = potassium) 4.5 mmol/L 3.5-5.5 chloride (test code = chloride) 103 mmol/L 98-107 CO2 (test code = CO2) 24 mmol/ L 23-31 glucose (test code = glucose) 72 mg/dL 70-99 BUN (test code = BUN) 12 mg/dL 6-20 creatinine (test code = creatinine) 0.7 mg/dL 0.5-0.9 calcium (test code = calcium) 9.5 mg/dL 8.6-10.4 total protein (test code = total protein) 7.3 g/dL 6.0-8.3 albumin (test code = albumin) 4.5 g/dL 3.5-5.2 total bilirubin (test code = total bilirubin) 0.2 mg/dL 0.0-1.2 alkaline phosphatase (test code = alkaline phosphatase) 64 U/L 44-147 AST (SGOT) (test code = AST (SGOT)) 27 U/L 0-32 ALT (SGPT) (test code = ALT (SGPT)) 27 U/L 0-33 globulin (test code = globulin) 2.8 g/dL 1.7-3.7 A/G ratio (test code = A/G ratio) 1.6 calc. 1.1-2.9 BUN/creatinine ratio (test code = BUN/creatinine ratio) 17.1 calc 10.0-28.0 eGFR (test code = eGFR) 124.551 mL/min/1.73A? >60.000 [facility] - Serum or [id number] 00:00:00* Test Item Value Reference Range Interpretation Comme nts cholesterol (test code = cholesterol) 151 mg/dL 0-200 triglycerides (test code = triglycerides) 75 mg/dL 10-150 HDL cholesterol (test code = HDL cholesterol) 57 mg/dL >50 HDL risk factor (test code = HDL risk factor) 2.6 calc. VLDL cholesterol (test code = VLDL cholesterol) 15 calc dldl (test code = dldl) 77 mg/dL <100 [facility] panel [Units/volume] - Serum or Plasma 2024-05-14 00:00:00* Test Item Value Reference Range Interpretation Comme nts LH (test code = LH) 4.2 mIU/mL FSH (test code = FSH) 5.6 mIU/mL [facility] MedicalTestosterone [Mass/volume] in Serum or [id number] 00:00:00* Test Item Value Reference Range Interpretation Comme nts testosterone (test code = testosterone) 10.8 NG/dL 8.4-48.1 [facility] MedicalCBC panel - Blood by Automated [id number] 00:00:00* Test Item Value Reference Range Interpretation Comme nts WBC (test code = WBC) 5.3 10 3.7-12.0 RBC (test code = RBC) 4.35 10 3.60-5.50 HGB (test code = HGB) 11.5 g/dL 11.5-15.6 L HCT (test code = HCT) 35.7 % 34.5-46.5 MCV (test code = MCV) 82.1 um 80.0-102.0 MCH (test code = MCH) 26.4 pg 25.0-34.1 MCHC (test code = MCHC) 32.2 g/dL 29.0-35.0 RDW (test code = RDW) 14.3 % 10.9-16.9 plt (test code = plt) 418 10 136-392 H MPV (test code = MPV) 7.6 um 7.4-11.1 gran % (test code = gran %) 44.6 % 36.0-78.0 lymph % (test code = lymph %) 38.6 % 12.0-48.0 mono % (test code = mono %) 5.8 % 0.0-13.0 eos % (test code = eos %) 11 % 0-8 H baso % (test code = baso %) 1 % 0-2 gran # (test code = gran #) 2.4 10 1.2-6.8 lymph # (test code = lymph #) 2.1 10 1.2-3.2 mono # (test code = mono #) 0.3 10 0.3-0.8 eos # (test code = eos #) 0.6 10 0.0-0.4 H baso # (test code = baso #) 0.0 10 0.0-0.2 [facility] MedicalHemoglobin A1c/Hemoglobin.total in [id number] 00:00:00* Test Item Value Reference Range Interpretation Comme nts Hemoglobin A1c/Hemoglobin.to robby in Blood (test code = 4548-4) 5.7 % <5.7 [facility] MedicalDehydroepiandrosterone sulfate (DHEA-S) [Mass/volume] in Serum or [id number] 00:00:00* Test Item Value Reference Range Interpretation Comme nts DHEA-S (test code = DHEA-S) 56.2 ug/dL 98.8-340.0 L [facility] - cancer history assessment [id number] 07:48:00* Test Item Value Reference Range Interpretation Comme nts mg - cancer history assessment result (test code = mg - cancer history assessment result) DOES NOT MEET CRITERIA [facility] Medical Notes Date/Time Note Provider Source 2024-06-10 17:16:00 [facility] ([facility]) Post Anesthesia Evaluation REPORT#:[id number] REPORT STATUS: Signed REPORT INITIALIZATION DATE:06/10/24 TIME: 1715 PATIENT: NESTOR TURNER UNIT #: [id number] ROOM/BED: : 00 AGE: 23 SEX: F ATTEND: Rj Madrid III, MD ADM AUTHOR: Honey Duff MD REPT SERVICE DT/TIME: 06/10/241715 * ALL edits or amendments must be made on the electronic/computer document * Post Anesthesia Evaluation Anes. changes from pre-op eval ORM Surgeries: Surgery Date and Time: 06/10/2024 1100 Primary Procedure: ROBOT XI RT OVARIAN CYSTECTOMY Anesthetic: GETA Surgery: Same as above. Date: 06/10/24 Level of consciousness: patient awake, able to answer questions, participate in this eval. Neurological assessment: Neuromuscular block: resolved as expected Musculoskeletal: moves all extremities, sensation intact Vital signs: Last Documented: Result Date Time Pulse Ox 98 06/10 162 B/P 139/77 06/10 162 O2 Delivery Room air 06/10 1625 Temp 36.5 06/10 162 Pulse 90 06/10 162 Resp 16 06/10 162 O2 Flow Rate 6 06/10 1532 Cardiovascular: CV system stable, vital signs stable Respiratory/Airway: respiratory system stable, maintains without support Pain: adequately controlled Hydration: adequate Temp status: greater than 96.8F, normothermic Presence of N/V: no Anesthesia complications: no Other changes requiring f/u: none Conclusions: no apparent anes. 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 The patient was prepped and draped in the dorsolithotomy position. A Rick catheter was placed and left to drain throughout the remainder of the procedure. A sponge stick was placed in vagina for uterine manipulation. The surgeon was regloved. An 8 mm trocar was placed in the left upper quadrant under direct visualization. The abdomen was insufflated with CO2 gas. The patient was placed in steep Trendelenburg position. Inspection of the pelvis noted the above findings. Four 8 mm robotic operative trocars were placed. The da Love operating platform was docked without difficulty. Using the monopolar otto, the capsule of the right ovary was incised. Using hydrodissection and the monopolar otto, a circumferential incision was made in the ovarian capsule. Using a similar technique with both blunt and sharp dissection, the right ovarian dermoid was freed from the ovary. The dermoid was placed in a 15 mm Endo Catch bag. Hemostasis of the ovarian dissection bed was obtained using the bipolar forceps. The dissection bed was then copiously irrigated. Once hemostatic, the edges of the ovarian capsule were reapproximated with 2 interrupted sutures of 3-0 Monocryl. The patient was then placed in reverse Trendelenburg, and irrigation fluid was removed with suction. The Endo Catch bag was removed after extending the left most da Love operating port. The fascia was then closed in a running fashion with 0 Vicryl. The skin of all incisions was closed in subcuticular fashion with 4-0 Monocryl. The sponge stick and Rick were removed. The patient was taken out of the dorsolithotomy position. The patient was then awakened and taken to the recovery room stable vitals after tolerating the procedure well. Primary Surgeon: Rj Madrid Back Hoe Machine Operator(s): RACHEL Soares Anesthesia: general anesthesia Operative findings: 1. small normal appearing uterus 2. normal left fallopian tube and ovary 3. 8-10 cm right ovarian dermoid 4. normal right fallopian tube 5. normal appendix Complications: none Estimated blood loss in ml's: 50 Specimens removed/altered: right ovarian dermoid Implant(s): none Disposition: plan to D/C home Counts: Sponge count: correct Instrument count: correct Needle count: correct Wound class: clean-contaminated at 1534 RPT #:[id number] END OF REPORT [facility] 2024-06-10 10:09:00 [facility] [facility] DT History Physical REPORT#:[id number] REPORT STATUS: Signed REPORT INITIALIZATION DATE:06/10/24 TIME: 1009 PATIENT: NESTOR TURNER UNIT #: [id number] ROOM/BED: : 00 AGE: 23 SEX: F ATTEND: Rj Madrid III, MD ADM AUTHOR: Rj Madrid III, MD REPT SERVICE DT/TIME: 06/10/24 1009 * ALL edits or amendments must be made on the electronic/computer document * History Physical History Physical Chief Complaint preoperative evaluation* Patient's Pharmacies [facility] [address] (ERX): [id number] [place] [address], , [facility] 2024-06-04 12:26 Ht: 5 ft 5 in (165.1 cm) Measurements None recorded. Allergies Reviewed Allergies PEANUT Medications Reviewed Medications azelastine 137 mcg (0.1 %) nasal spray USE 1 SPRAY(S) IN EACH NOSTRIL ONCE DAILY 04/15/24 filled surescripts Problems Reviewed Problems Benign teratoma of ovary - Onset: 05/27/2024 von Willebrand disorder - Onset: 05/23/2024 Pain in pelvis - Onset: 05/13/2024 Menorrhagia - Onset: 05/13/2024 Abnormal uterine bleeding - Onset: 05/13/2024 Cyst of right ovary - Onset: 05/13/2024 Polycystic ovary syndrome - Onset: 05/13/2024 Family History Reviewed Family History Social History Reviewed Social History Substance Use Do you or have you ever used any other forms of tobacco or nicotine?: No Has tobacco cessation counseling been provided?: No Do you use any illicit or recreational drugs?: No Education and Occupation Are you currently in school?: No Are you currently employed?: No Home and Environment Do you have smoke and carbon monoxide detectors in your home?: No Are you passively exposed to smoke?: No Are there any guns present in your home?: No Do you use insect repellent routinely?: No Do you use sunscreen routinely?: No Surgical History Reviewed Surgical History FLOW NURSE History Reviewed FLOW NURSE History Date of LMP: 05/11/2024. Frequency of Cycle (Q days): 28. Duration of Flow (days): 5. Flow: Heavy. Menses Monthly: Y. Menstrual Cramps: mild. Date of Last Pap Smear: 03/03/2024. Date of HPV testin03/03/2024. HPV testing results: Negative. Abnormal Pap: N. Any Treatment for Abnormal Pap?: N. Age at Menarche: 9. HPV Vaccine: N. Sexual Orientation: Heterosexual. Sexually Active?: Y. Sexual Problems?: N. STIs/STDs: N. Endometriosis: N. Fibroids: N. Infertility: N. Ovarian Cyst: Y. PCOS: Y. Obstetric History Reviewed Obstetric History TOTAL FULL PRE AB. I AB. S ECTOPICS MULTIPLE LIVING 1 1 0 Past Pregnancies Date # Fetuses GA Wks Labor Length Weight Sex Delivery Type Outcome Anesthesia Delivery Place Labor Notes Source 07/03/2023 1 , Spontaneous historical Past Medical History Reviewed Past Medical History Asthma: Y HPI Ovarian Cyst Reported by patient. Quality: pain Severity: moderate Alleviating Factors: Tylenol; OTC meds: Aggravating Factors: none Other LMP (05/11/24) Notes: 8 cm right ovarian dermoid on US Pelvic Pain Reported by patient. Symptoms: no abdominal pain; no back pain; no chills; no constipation; no diarrhea; no vaginal discharge; no urinary symptoms; no feelings of urgency; normal libido; no fever; no nausea; no vomiting; no nocturia; no sexual abuse; no ectopic pregnancies; no endometriosis; no urinary frequency; no vaginal itching or irritation; no dyspareunia Location: pelvis; right Onset/Timing: intermittent Duration: >6 months Quality: sharp; heavy menstrual bleeding Context: occurs with menstrual cycle; no contraception Alleviating Factors: Tylenol Aggravating Factors: movement Pre-operative Medical Evaluation Reported by patient. Surgery/Procedure: surgery/procedure: (robotic assisted right cystectomy, possible oophorectomy); indication for surgery/procedure: (right ovarian dermoid ); date of surgery/procedure: (); location/center: ([facility]); surgeon: ( Julius); proposed anesthesia: (GETA) Risk Factors no history of surgical complications; no easy bleeding tendency; no history of blood clots; no history of allergic reaction to anesthetic agents Current Symptoms: no unusual fatigue; normal appetite; no fever; no chest pain; no palpitations; no unexplained syncope; no shortness of breath; no reduction in exercise tolerance due to chest pain or dyspnea; no upper respiratory infection; no wheezing; no atypical bleeding; no unusual lower extremity edema/pain; no abdominal pain; normal bowel function; no dysuria/urinary symptoms Education discussed surgical/procedural indications; discussed concerns about surgery/procedure; discussed risk factors; 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 Level of Distress: no acute distress. Eyes: Eyes PERRLA, extraocular movements intact, and sclera anicteric. Ears, Nose, Throat: Ears normal hearing and tympanic membranes pearly with intact light reflex. Nose: normal nasal mucosa and no nasal discharge. Mouth: good oral hygiene and no oral mucosal lesions or inflammation. Throat: no oropharyngeal lesions or inflammation or tonsillar lesions or inflammation. Neck: Appearance supple, full range of motion, and no lymphadenopathy. Thyroid: no enlargement or nodules and non-tender. Lungs / Chest: Respiratory effort: unlabored. Auscultation: no wheezing, rales/ crackles, or rhonchi. Percussion: no dullness or hyperresonance. Cardiovascular: Rate And Rhythm: regular. Heart Sounds: no murmurs, rub, gallops , or click. Extremities: no clubbing, cyanosis, or edema. Neck vessels: no carotid bruits or jugular venous distention. Pulses: full throughout. Breast: Breasts no masses, tenderness, skin changes, abnormal secretions, or axillary lymphadenopathy and symmetric and normal nipple appearance. Abdomen: Bowel Sounds: normal pitch and intenstity. Inspection and Palpation: no tenderness, guarding, masses, rebound tenderness, or CVA tenderness and soft and non-distended. Liver: non-tender and no hepatomegaly. Spleen: non-tender and no splenomegaly. Hernia: none palpable. Female : External genitalia: no lesions, rash, erythema, or genital warts. Vagina: no discharge, mass, tenderness, cystocele, or rectocele and moist mucosa and non-erythematous mucosa. Cervix: no cervical lesion or motion tenderness and no discharge or inflammation. Uterus: midline, smooth, non-tender, no mass, and not enlarged. Adnexae: no adnexal mass or tenderness. Bladder and Urethra: no urethral discharge or mass, no meatus lesion or inflammation, and bladder non distended. Extremities: Extremities: no swelling or inflammation of the extremities and pulses full. Musculoskeletal System: General Musculoskeletal no joint, muscle, or bone tenderness and full range of motion. Skin: General Skin no rash or suspicious lesions. Assessment / Plan 1. Pre-surgery evaluation Z01.818: Encounter for other preprocedural examination 2. 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 Risks and benefits of eac discussed with patient. Patient desires surgical removal. Plan robotic assisted right cystectomy, possible right oophorectomy. Risks discussed with patient including infection, bleeding, and damage to internal organs including bowel, bladder and ureters. Also discussed possibility of completing via an open route. verbalized understanding. Also discussed possible cardiovascular complications associated with laparoscopy. Verbalized understanding. at 1010 RPT #:[id number] END OF REPORT [facility] 2024-06-04 14:24:00 [id number] [facility] PATIENT NAME: NESTOR TURNER ADMIT DATE: ACCOUNT NO: [id number] ROOM NO: AGE: 23 REPORT TYPE: eEKG REPORT SEX: F DATE OF : 00 ADMITTING PHYSICIAN: ATTENDING PHYSICIAN:Rj Madrid III, MD Order: [id number] Test Reason : PRE OP Test Date/Time Stamp: MonJun 04 2024 14:24:10 Blood Pressure : / mmHG Vent. Rate : 082 BPM Atrial Rate : 082 BPM P-R Int : 138 ms QRS Dur : 088 ms QT Int : 396 ms P-R-T Axes : 008 042 -11 degrees QTc Int : 462 ms Normal sinus rhythm T wave abnormality, consider inferior ischemia T wave abnormality, consider anterior ischemia Prolonged QT Abnormal ECG No previous ECGs available Confirmed by MOISE BRUCE MD ([id number]) on 06/06/2024 5:38:55 PM Referred By: Rj Madrid Confirmed by:MOISE BRUCE MD at 1242 PATIENT NAME: NESTOR TURNERFAUSTINO [facility]
[2024-09-16] MEDS ORDERED: NA CHLORIDE 0.9% 1,000 ML ONE (23:03)
[2024-09-16] MEDS ORDERED: DICYCLOMINE HCL 20 MG/2 ML AMP IM ONE (23:03)
[2024-09-16 23:13] LABS: Absolute Eosinophils 0.5 K/uL (0-0.5); Absolute Lymphocytes (CBC) 3.5 K/uL (0.7-4.9); Absolute Monocytes 0.5 K/uL (0.1-1.3); Absolute Neutrophil 4.9 K/uL (1.8-8.0); Basophils % 0.5 % (0-1.3); Eosinophils % 5.2 % (0-4.4); Hematocrit 34.6 % (36.0-45.0); Hemoglobin 11.4 g/dL (12.0-15.0); Lymphocytes % 36.8 % (15.3-44.8); MCH 26.6 pg (27.0-35.0); MCHC 32.9 g/dL (32.0-36.0); MCV 80.8 fL (80-100); MPV 7.1 fL (7.6-11.3); Monocytes % 5.3 % (3.3-12.3); Neutrophils % 52.2 % (41.7-73.7); Nucleated Red Blood Cells % 0.1 % (0-0); Platelets 400 thou/uL (152-406); RBC Red Blood Cell Count 4.28 M/uL (3.86-4.86); Red Cell Distribution Width 14.6 % (12.1-15.2)
[2024-09-16 23:24] LABS: PT Prothrombin Time 10.2 SECONDS (10-13.0); PTT, Activated Partial Thromb 28.8 SECONDS (27.2-37.4); Protime INR 0.89
[2024-09-17 00:11] LABS: ALT/SGPT 47 U/L (13-56); AST/SGOT 21 U/L (15-37); Albumin 3.2 g/dL (3.4-5.0); Albumin/Globulin Ratio 0.8 (1.1-1.8); Alkaline Phosphatase 73 U/L (45-117); Anion Gap 9.7 mEq/L (5.0-15.0); BUN Blood Urea Nitrogen 13 mg/dL (7-18); Bicarbonate 22 mEq/L (21-32); Glomerular Filtration Rate 90 ml/min (=/>90); Glucose Level 151 mg/dL (74-106); Lipase 53 U/L (13-75); Potassium 3.7 mEq/L (3.5-5.1); Protein, Total 7.2 g/dL (6.4-8.2); Sodium Level 138 mEq/L (136-145)
[2024-09-17 00:12] LABS: Bilirubin Total < 0.2 mg/dL (0.2-1.0)
[2024-09-17 00:26] LABS: Specific Gravity 1.029 (1.005-1.030); Urine Bilirubin NEGATIVE (Negative); Urine Blood Negative (Negative); Urine Clarity Clear (Clear); Urine Color Light-Yellow (Yellow); Urine Glucose NEGATIVE (Negative); Urine Ketones NEGATIVE (Negative); Urine Microscopic Reflex YN NO UMIC; Urine Nitrite NEGATIVE (Negative); Urine Protein NEGATIVE (Negative); Urine Urobilinogen Normal (Normal)
[2024-09-17 00:27] LABS: Specific Gravity 1.029 (1.005-1.030)
--- NOTE | 2024-09-17 04:19 | ER ---
Nurse's Notes [facility] Name: Jennifer Paredes Age: 23 yrs Sex: Female : 2000 Arrival Date: 09/16/2024 Time: 22:08 Bed 19 Private MD: Diagnosis: Rectal Bleeding Presentation: 09/16 22:27 Chief complaint: Patient states: I had two BM with bright red blood in it. and I have bm8 this rash on my chest that comes and goes for three weeks. Coronavirus screen: Vaccine status: Patient reports receiving the 2nd dose of the covid vaccine. Ebola Screen: Patient negative for fever greater than or equal to 101.5 degrees Fahrenheit, and additional compatible Ebola Virus Disease symptoms Patient denies exposure to infectious person. Patient denies travel to an Ebola-affected area in the 21 days before illness onset. No symptoms or risks identified at this time. Initial Sepsis Screen: Does the patient meet any 2 criteria? No. Patient's initial sepsis screen is negative. Does the patient have a suspected source of infection? No. Patient's initial sepsis screen is negative. Risk Assessment: Do you want to hurt yourself or someone else? Patient reports no desire to harm self or others. Onset of symptoms was September 16, 2024 at 08:00. 22:27 Method Of Arrival: Ambulatory bm8 22:27 Acuity: BEN 3 bm8 Triage Assessment: 22:28 General: Appears in no apparent distress. comfortable, Behavior is calm, cooperative, bm8 appropriate for age. Pain: Complains of pain in rectum Pain currently is 1 out of 10 on a pain scale. Neuro: No deficits noted. Level of Consciousness is awake, alert, obeys commands, Oriented to person, place, time, situation, Appropriate for age. Cardiovascular: Capillary refill < 3 seconds in bilateral fingers Patient's skin is warm and dry. Respiratory: Airway is patent Trachea midline Respiratory effort is even, unlabored, Respiratory pattern is regular, Breath sounds are clear bilaterally. GI: Reports bleeding bright red during bm for one day. 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 - Infectious Disease History:: Denies. - Social history:: Smoking status: Patient/guardian denies using tobacco, Patient uses alcohol, occasionally. Screenin:38 [facility] ED Fall Risk Assessment (Adult) History of falling in the last 3 months, rg5 including since admission No falls in past 3 months (0 pts) Confusion or Disorientation No (0 pts) Intoxicated or Sedated No (0 pts) Impaired Gait No (0 pts) Mobility Assist Device Used No (0 pt) Altered Elimination No (0 pt) Score/Fall Risk Level 0 - 2 = Low Risk Oriented to surroundings, Maintained a safe environment, Hourly rounding (assess needs \T\ fall precautionary measures) done. Abuse screen: Denies threats or abuse. Nutritional screening: No deficits noted. Tuberculosis screening: No symptoms or risk factors identified. Assessment: 22:38 General: Appears in no apparent distress. comfortable, Behavior is calm, cooperative, rg5 appropriate for age. Pain: Denies pain. Neuro: Level of Consciousness is awake, alert, obeys commands, Oriented to person, place, time. Cardiovascular: Denies chest pain, Patient's skin is warm and dry. Respiratory: Airway is patent Trachea midline Respiratory effort is even, unlabored, Respiratory pattern is regular, symmetrical. GI: Reports constipation, bloody stool. : No signs and/or symptoms were reported regarding the genitourinary system. EENT: No deficits noted. Derm: Skin is intact, Skin is dry, Skin is normal. Musculoskeletal: Circulation, motion, and sensation intact. Range of motion: intact in all extremities. 23:20 Reassessment: No changes from previously documented assessment. Patient and/or family rg5 updated on plan of care and expected duration. Pain level reassessed. Patient is alert, oriented x 3, equal unlabored respirations, skin warm/dry/pink. 18 00:35 Reassessment: Patient and/or family updated on plan of care and expected duration. Pain rg5 level reassessed. Patient is alert, oriented x 3, equal unlabored respirations, skin warm/dry/pink. 01:00 Reassessment: Patient and/or family updated on plan of care and expected duration. Pain rg5 level reassessed. Patient is alert, oriented x 3, equal unlabored respirations, skin warm/dry/pink. 02:01 Reassessment: No changes from previously documented assessment. Patient and/or family rg5 updated on plan of care and expected duration. Pain level reassessed. Patient is alert, oriented x 3, equal unlabored respirations, skin warm/dry/pink. 03:24 Reassessment: No changes from previously documented assessment. Patient and/or family rg5 updated on plan of care and expected duration. Pain level reassessed. Patient is alert, oriented x 3, equal unlabored respirations, skin warm/dry/pink. 04:19 Reassessment: Patient and/or family updated on plan of care and expected duration. Pain rg5 level reassessed. Patient is alert, oriented x 3, equal unlabored respirations, skin warm/dry/pink. Patient states symptoms have improved. Vital Signs: 09/16 22:27 BP 136 / 72; Pulse 88; Resp 18; Temp 98.9; Pulse Ox 98% ; Weight 113.4 kg; Height 5 ft. bm8 6 in. ; Pain 1/10; 22:38 BP 101 / 91; Pulse 88; Resp 18; Temp 98; Pulse Ox 100% ; rg5 23:19 BP 129 / 81; Pulse 87; Resp 17; Pulse Ox 99% on R/A; Pain 1/10; rg5 09/17 01:00 BP 122 / 82; Pulse 85; Resp 17; Pulse Ox 100% on R/A; Pain 0/10; rg5 02:00 BP 127 / 71; Pulse 85; Resp 17; Pulse Ox 100% on R/A; Pain 0/10; rg5 03:23 BP 102 / 72; Pulse 81; Resp 17; Pulse Ox 100% ; Pain 0/10; rg5 04:19 BP 109 / 63; Pulse 77; Resp 18; Pulse Ox 97% on R/A; Pain 0/10; rg5 09/16 22:27 Body Mass Index 40.35 (113.40 kg, 167.64 cm) bm8 09/16 22:27 Pain Scale: Adult bm8 23:19 Pain Scale: Adult rg5 09/17 01:00 Pain Scale: Adult rg5 02:00 Pain Scale: Adult rg5 03:23 Pain Scale: Adult rg5 04:19 Pain Scale: Adult rg5 ED Course: 09/16 22:12 Patient arrived in ED. gm2 22:21 Kwaku Wang PA is PHCP. cp 22:21 Yoshi Feliciano MD is Attending Physician. cp 22:28 Triage completed. bm8 22:28 Arm band placed on right wrist. rg5 22:33 Watson Keating, DELMA is Primary Nurse. rg5 22:38 Patient has correct armband on for positive identification. Placed in gown. Bed in low rg5 position. Call light in reach. Side rails up X 1. 22:38 No provider procedures requiring assistance completed. rg5 03 01:39 CT Abd/Pelvis- W/WO Contrast In Process Unspecified. EDMS 04:19 Provided Education on: post er care done. rg5 04:19 IV discontinued, bleeding controlled, No redness/swelling at site. Pressure dressing rg5 applied. Administered Medications: 09/16 23:08 Drug: NS 0.9% IV 1000 ml IV at 1 bolus Per protocol; to be given as a bolus over 60 rg5 minutes Route: IV; Rate: 1 bolus; Site: right hand; 09/17 01:00 Follow up: IV Status: Completed infusion; IV Intake: 1000ml rg5 02:32 Not Given (Patient Refused): [id number] mg IM once rg5 Medication: 09/16 22:38 VIS not applicable for this client. rg5 Intake: 09/17 01:00 IV: 1000ml; Total: 1000ml. rg5 Outcome: 04:18 Discharge ordered by . ec2 04:31 Discharged to home ambulatory, rg5 04:31 Condition: stable 04:31 Discharge instructions given to patient, family, Instructed on discharge instructions, follow up and referral plans. Demonstrated understanding of instructions, follow-up care, medications, Prescriptions given X 1, 04:31 Patient left the ED. rg5 Signatures: Dispatcher [employer] EDNM Kwaku Wang PA PA cp Corral, Edwin, MD MD 2 Nicol Laura 2 Ariel Gardner, RN RN bm8 Watson Keating, DELMA RN rg5 Corrections: (The following items were deleted from the chart) 03:26 09/16 22:28 Arm band placed on right wrist. bm8 rg5 09/17 03:27 03:23 BP 102 / 72; Pulse 81bpm; Resp 17bpm; Pulse Ox 100%; Pain 0/10, Adult; bm8 rg5 03:28 03:24 Reassessment: No changes from previously documented assessment. Patient and/or rg5 family updated on plan of care and expected duration. Pain level reassessed. Patient is alert, oriented x 3, equal unlabored respirations, skin warm/dry/pink. bm8
--- NOTE | 2024-09-17 04:20 | EDPHYS ---
Physician Documentation [facility] Name: Jennifer Paredes Age: 23 yrs Sex: Female : 2000 Arrival Date: 09/16/2024 Time: 22:08 Bed 19 Private MD: ED Physician Yoshi Feliciano HPI: 09/16 22:55 This 23 yrs old Black Female presents to ER via Ambulatory with complaints of Rectal cp Bleeding, Rash. 22:55 The patient presents to the emergency department with bleeding from the rectum/anus, cp that is moderate. Onset: The symptoms/episode began/occurred today. Context: the patient with bowel movement times 2. Second bowel movement small amount red blood noticed. Associate signs and symptoms: Pertinent positives: lower abdomen cramping, Pertinent negatives: constipation, diarrhea, fever. Patient also c/o worsening rash to chest and shoulders over past several weeks. 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 - Infectious Disease History:: Denies. - Social history:: Smoking status: Patient/guardian denies using tobacco, Patient uses alcohol, occasionally. ROS: 23:00 Constitutional: Negative for body aches, chills, fever, poor PO intake, cp 23:00 Eyes: Negative for injury, pain, redness, and discharge, cp 23:00 ENT: Negative for drainage from ear(s), ear pain, sore throat, difficulty swallowing, difficulty handling secretions, 23:00 Cardiovascular: Negative for chest pain, edema, palpitations, 23:00 Respiratory: Negative for cough, shortness of breath, wheezing, 23:00 Abdomen/GI: Positive for abdominal cramps, rectal bleeding, of the right lower quadrant and left lower quadrant, Negative for nausea, vomiting, diarrhea, constipation, 23:00 Back: Negative for pain at rest, pain with movement, 23:00 : Negative for urinary symptoms, 23:00 Skin: Positive for rash, of the chest and shoulders, 23:00 Neuro: Negative for altered mental status, dizziness, headache, syncope, near syncope, weakness, 23:00 All other systems are negative, Exam: 23:05 Constitutional: The patient appears in no acute distress, alert, awake, comfortable, cp non-toxic, well developed, well nourished, anxious, obese, 23:05 Head/Face: Normocephalic, atraumatic. cp 23:05 Eyes: Periorbital structures: appear normal, Conjunctiva: normal, no exudate, no injection, Sclera: no appreciated abnormality, Lids and lashes: appear normal, bilaterally, 23:05 ENT: External ear(s): are unremarkable, Nose: is normal, Mouth: Lips: moist, Oral mucosa: moist, Posterior pharynx: Airway: no evidence of obstruction, patent, 23:05 Chest/axilla: Inspection: normal, 23:05 Cardiovascular: Rate: normal, Rhythm: regular, Edema: is not appreciated, JVD: is not appreciated, 23:05 Respiratory: the patient does not display signs of respiratory distress, Respirations: normal, no use of accessory muscles, no retractions, labored breathing, is not present, Breath sounds: are clear throughout, no decreased breath sounds, no stridor, no wheezing, 23:05 Abdomen/GI: Inspection: abdomen appears normal, Bowel sounds: active, all quadrants, Palpation: soft, in all quadrants, mild abdominal tenderness, in the right lower quadrant and left lower quadrant, rebound tenderness, is not appreciated, voluntary guarding, is not appreciated, involuntary guarding, is not appreciated, Rectal exam: Stool: brown, hemorrhoid(s), are not appreciated, 23:05 Back: pain, is absent, ROM is normal, 23:05 Skin: eczema, on the chest and shoulders, 23:05 Neuro: Orientation: to person, place \T\ time. Mentation: is normal, Vital Signs: 22:27 BP 136 / 72; Pulse 88; Resp 18; Temp 98.9; Pulse Ox 98% ; Weight 113.4 kg; Height 5 ft. bm8 6 in. ; Pain 1/10; 22:38 BP 101 / 91; Pulse 88; Resp 18; Temp 98; Pulse Ox 100% ; rg5 23:19 BP 129 / 81; Pulse 87; Resp 17; Pulse Ox 99% on R/A; Pain 1/10; rg5 18 01:00 BP 122 / 82; Pulse 85; Resp 17; Pulse Ox 100% on R/A; Pain 0/10; rg5 02:00 BP 127 / 71; Pulse 85; Resp 17; Pulse Ox 100% on R/A; Pain 0/10; rg5 03:23 BP 102 / 72; Pulse 81; Resp 17; Pulse Ox 100% ; Pain 0/10; rg5 04:19 BP 109 / 63; Pulse 77; Resp 18; Pulse Ox 97% on R/A; Pain 0/10; rg5 17 22:27 Body Mass Index 40.35 (113.40 kg, 167.64 cm) 8 09/16 22:27 Pain Scale: Adult 8 23:19 Pain Scale: Adult rg5 09/17 01:00 Pain Scale: Adult rg5 02:00 Pain Scale: Adult rg5 03:23 Pain Scale: Adult rg5 04:19 Pain Scale: Adult rg5 MDM: 09/16 22:29 Medical Screening Exam initiated 09/17 03:07 Data reviewed: vital signs, nurses notes. ec2 03:07 ED course: Patient signed out to me with pending CT imaging. Patient with rectal ec2 bleeding x 2, reassuring CBC with minimal anemia with a history of anemia. Metabolic profile is nonactionable. UA is negative. Pending CT imaging. Likely d/c to home. 04:19 ED course: CT imaging shows hyperdensity in the gastric lumen. Patient not having any ec2 melanic stool. On reassessment patient is well-appearing in no acute distress. Her discharged home. Turn precautions given.. 09/16 22:50 Order name: CBC with Diff; Complete Time: 23:48 cp 09/16 23:48 Interpretation: Normal except: HGB 11.4; HCT 34.6; MCH 26.6; MPV 7.1; EOSINOPHIL % 5.2. 09/16 22:50 Order name: CMP; Complete Time: 00:29 cp 09/17 00:29 Interpretation: Normal except: CL 110; GLUC 151; BILIT < 0.2; CA 8.4; ALB 3.2; GLOB cp 4.0; A/G 0.8. 09/16 22:50 Order name: Lipase; Complete Time: 00:29 cp 09/16 22:50 Order name: Test, Urine; Complete Time: 00:29 cp 09/16 22:50 Order name: Urinalysis w/ reflexes; Complete Time: 00:29 cp 09/16 22:50 Order name: PT-INR; Complete Time: 23:48 cp 09/16 22:50 Order name: Ptt, Activated; Complete Time: 23:48 cp 09/16 22:50 Order name: CT Abd/Pelvis- W/WO Contrast cp 09/16 22:50 Order name: IV Saline Lock; Complete Time: 23:09 cp 09/16 22:50 Order name: Labs collected and sent; Complete Time: 23:09 cp Administered Medications: 09/16 23:08 Drug: NS 0.9% IV 1000 ml IV at 1 bolus Per protocol; to be given as a bolus over 60 rg5 minutes Route: IV; Rate: 1 bolus; Site: right hand; 09/17 01:00 Follow up: IV Status: Completed infusion; IV Intake: 1000ml rg5 02:32 Not Given (Patient Refused): [id number] mg IM once rg5 Disposition: 03:07 I reviewed the patient's care provided by Advanced Practice Provider \T\ agree w/ the ec2 diagnosis \T\ care plan. I personally saw the pt \T\ performed a substantive portion of the visit, incldng all aspects of the (History/Exam/Medical Decision Making). Disposition Summary: 09/17/24 04:18 Discharge Ordered Notes: Location: Home ec2 Condition: Stable ec2 Diagnosis - Rectal Bleeding ec2 Followup: ec2 - With: Private Physician - When: - Reason: Re-evaluation by your physician Discharge Instructions: - Discharge Summary Sheet cp - Rectal Bleeding, [id number] ec2 Forms: - Medication Reconciliation Form ec2 - Antibiotic Education ec2 - Prescription Opioid Use ec2 - Patient Portal Instructions ec2 - Leadership Thank You Letter ec2 - Work release form kmf Prescriptions: - Triamcinolone Acetonide 0.5 % Topical cream - apply 1 application TOPICAL route 2 times per day As needed; 30 application; cp Refills: 0, Product Selection Permitted Signatures: Dispatcher [employer] Kwaku Richards PA PA cp Corral, Edwin, MD MD ec2 Ariel Gardner RN RN bm8 Keating, Watson, RN RN rg5 Corrections: (The following items were deleted from the chart) 09/16 22:51 22:50 CBC+H.LAB.BRZ ordered. EDMS EDMS 22:51 22:50 COMPREHENSIVE METABOLIC PANEL+C.LAB.BRZ ordered. EDMS EDMS 22:51 22:50 LIPASE+C.LAB.BRZ ordered. EDMS EDMS 22:51 22:50 Test, Urine+UC.LAB.BRZ ordered. EDMS EDMS 22: 22:50 Urinalysis+U.LAB.BRZ ordered. EDMS EDMS 22:51 22:50 PROTIME (+INR)+COAG.LAB.BRZ ordered. EDMS EDMS 22:51 22:50 PTT, ACTIVATED+COAG.LAB.BRZ ordered. EDMS EDMS
[2024-09-17 04:36] VITALS: TEMP 98
[2024-09-17 04:42] VITALS: BP 109/63; O2SAT 97
--- NOTE | 2024-09-17 06:25 | RAD REPORT ---
EXAM DESCRIPTION: Abdomen Pelvis W/Wo Contrast CLINICAL HISTORY: rectal bleeding COMPARISON: None Available. TECHNIQUE: CT of the abdomen and pelvis performed before and after the administration of IV contrast. No oral contrast. This exam was performed according to our departmental dose-optimization program, which includes automated exposure control, adjustment of the mA and/or kV according to patient size a nd/or use of iterative reconstruction technique. FINDINGS: There is motion artifact on enhanced images. Lung Bases: The visualized lung bases are clear. Abdomen: Liver: Normal contour with diffuse decreased density and geographic areas of sparing. No suspicious m ass. Gallbladder: Contracted. No visualized calcified gallstones. No significant biliary dilatation. Spleen, Pancreas, and Adrenal Glands: The spleen, pancreas, and adrenal glands are unremarkable. Kidneys: No suspicious mass. No urinary tract calculi. No hydronephrosis. Vasculature: The aorta and IVC have normal caliber and position. The portal vein is patent. Stomach: There is some hyperdensity in the gastric lumen seen on both noncontrast and postcontrast images. Findings could be due to hyperdensity of ingested contents, though blood products but also contribute to this appearance. Other: No free intraperitoneal air. No free fluid or lymphadenopathy. There is a small broad-base d ventral hernia in the anterolateral right abdomen. There is some mild adjacent fat stranding. Pelvis: Bladder: Urinary bladder is unremarkable. Bowel: No dilated loops of large or small bowel. No other definite GI bleeding is identified on t his exam. Appendix: Normal appendix. Pelvis: No suspicious mass. Bones: No destructive bone lesions identified. IMPRESSION: 1. Hyperdensity in the gastric lumen could be due to hyperdensity of ingested contents, though bloo d products could also contribute to this appearance. No other definite GI bleeding is identified on this exam. 2. Hepatic steatosis. 3. Small broad-based ventral hernia in the anterolateral right abdomen with some mild adjacent fat stranding. Electronically signed by: Kasie Mccray MD 09/17/2024 04:01 AM CDT Due to temporary technical issues with the PACS/[employer] reporting system, reports are being shawna d by the in-house radiologist without review as a courtesy to ensure prompt reporting the interpreting radiologist is fully responsible for the content of the report. Transcribed Date/Time: 09/17/2024 6:25 AM
== END 2024-09-17 04:31 | disposition home or self-care (01) ==
LOC: ER 22:08
DX: K62.5 Hemorrhage of anus and rectum (principal); R21 Rash and other nonspecific skin eruption
CPT/HCPCS: 85025; 36415; 81025; 85610; 85730; 81003; 83690; 80053; 74178; Q9967; J7030; J0500